=== PATIENT | male | born 1950 | race Caucasian/White ===

== ENCOUNTER 2023-06-01 10:21 | Outpatient (CLI) | payer OTHER, SELFPAY ==
--- NOTE | 2023-06-01 10:27 | MR_ITS ---
WS: [id number] MRI THORACIC SPINE WITHOUT CONTRAST TECHNIQUE: Sagittal T1, T2 and STIR imaging. Axial T2 imaging. Noncontrast imaging obtained. CLINICAL INFORMATION: Mid back pain COMPARISON: None. FINDINGS: Moderate thoracic kyphosis. No acute compression fractures. Mild chronic anterior wedging in the midt horacic spine at T7 and T8. Small syrinx in the thoracic cord extending from T7-T9. Maximum AP dimens ion measures 1.9 mm. Cord signal is otherwise normal. Shallow central protrusion T3-4. Mild facet arthropathy lower thoracic spine. Mild annular bulging L1 -2. Adrenal glands are normal. Normal caliber thoracic aorta. IMPRESSION: 1. Moderate thoracic kyphosis. No acute compression fractures. 2. Mild chronic anterior wedging at T7 and T8. 3. Tiny shallow central protrusion T3-4. 4. Small syrinx within the thoracic cord most prominent at T7-T9 with maximum dimension measuring 1. 9 mm. 5. Cord signal is otherwise normal. 6. Mild facet arthropathy lower thoracic spine.
== END 2023-06-01 10:22 | disposition home or self-care (01) ==
PROVIDERS: Visit Provider Emergency Medicine Emergency Medical Services
DX: M54.6 Pain in thoracic spine (principal); Z01.89 Encounter for other specified special examinations; M47.814 Spondylosis without myelopathy or radiculopathy, thoracic region; S22.060A Wedge compression fracture of T7-T8 vertebra, initial encounter for closed fracture; X58.XXXA Exposure to other specified factors, initial encounter; M40.204 Unspecified kyphosis, thoracic region; M47.816 Spondylosis without myelopathy or radiculopathy, lumbar region; M48.061 Spinal stenosis, lumbar region without neurogenic claudication; M51.26 Other intervertebral disc displacement, lumbar region; M43.16 Spondylolisthesis, lumbar region
CPT/HCPCS: 72146; 72148

== ENCOUNTER 2023-06-01 10:22 | Outpatient (CLI) | payer OTHER, SELFPAY ==
--- NOTE | 2023-06-01 10:39 | MR_ITS ---
WS: [id number] MRI LUMBAR SPINE NONCONTRAST TECHNIQUE: Sagittal T1, T2 and STIR imaging. Axial T1 and T2 imaging. CLINICAL INFORMATION: BACK PAIN COMPARISON: None. FINDINGS: Counting performed from the craniocervical junction. 4 lumbar type vertebral bodies. L5 is sacralized . Recommend plain film correlation prior to surgical intervention. T12-L1: Mild facet arthropathy. Spinal canal and foramen are patent. L1-L2: Mild annular bulging. Slight effacement of the ventral thecal sac. Mild facet arthropathy. Spi nal canal and foramen are patent. L2-L3: Mild annular bulging. Mild facet arthropathy. Small LEFT foraminal protrusion impinges the exi ting L2 nerve root. Mild LEFT foraminal narrowing. RIGHT foramen is patent. L3-L4: Mild annular bulging with slight effacement of the ventral thecal sac. Small LEFT foraminal pr otrusion slightly impinges the exiting LEFT L3 nerve root. Spinal canal and RIGHT foramen are patent. Mild facet arthropathy with ligamentum flavum hypertrophy. L4-L5: Slight anterolisthesis L4 on L5. Mild annular bulging. Moderate facet arthropathy. Mild RIGHT and no significant LEFT foraminal narrowing. L5-S1: L5 is sacralized. Spinal canal and foramen are patent. Visualized pelvic bony structures: Normal. Paravertebral soft tissues: Normal. IMPRESSION: 1. Counting performed from the craniocervical junction. 4 lumbar type vertebral bodies. L5 is sacr alized. Recommend plain film correlation prior to surgical intervention. 2. Slight anterolisthesis L4 on L5. 3. Small LEFT foraminal protrusions L2-L3 and L3-L4 with slight impingement on the exiting LEFT L2 a nd L3 nerve roots respectively with mild LEFT foraminal narrowing. 4. Mild annular bulging L2-L3 and L3-L4 with slight effacement of the ventral thecal sac and slight narrowing of the subarticular recess. 5. Mild RIGHT L4-5 bony foraminal narrowing. 6. Moderate facet arthropathy L4-5.
== END 2023-06-01 10:23 | disposition home or self-care (01) ==
LOC: RAD 10:22
PROVIDERS: Visit Provider Emergency Medicine Emergency Medical Services
DX: Z01.89 Encounter for other specified special examinations (principal); M47.816 Spondylosis without myelopathy or radiculopathy, lumbar region; M48.061 Spinal stenosis, lumbar region without neurogenic claudication; M51.26 Other intervertebral disc displacement, lumbar region; M43.16 Spondylolisthesis, lumbar region
CPT/HCPCS: 72148

== ENCOUNTER 2023-08-28 10:23 | Outpatient (CLI) | payer OTHER, SELFPAY ==
[2023-08-28 11:14] LABS: Estmated Average Glucose 117; Hemoglobin A1C 5.7 % (4.0-6.0)
== END 2023-08-28 10:24 | disposition home or self-care (01) ==
PROVIDERS: Visit Provider Nurse Practitioner Family
DX: Z01.89 Encounter for other specified special examinations (principal)
CPT/HCPCS: 36415; 83036